=== PATIENT | male | born 1945 | race Caucasian/White ===

== ENCOUNTER 2019-03-05 15:26 | Observation (INO) | payer MEDICARE ==
[~2019-03-05] VITALS: Ht 172.7 cm; Wt 79.4 kg
[2019-03-05 16:26] LABS: BASOPHILS ABSOLUTE AUTO 0.04 K/mm3 (0.00-0.23); BASOPHILS PERCENT AUTO 0 % (0-2); EOSINOPHILS ABSOLUTE AUTO 0.21 K/mm3 (0.00-0.68); EOSINOPHILS PERCENT AUTO 2 % (0-6); Hematocrit 41.6 % (37.0-53.0); Hemoglobin 13.7 g/dL (13.5-17.5); IMMATURE GRAN ABSOLUTE AUTO 0.05 K/mm3 (0.00-0.10); IMMATURE GRAN PERCENT AUTO 0 % (0-1); LYMPHOCYTES ABSOLUTE AUTO 0.74 K/mm3 (0.84-5.20); LYMPHOCYTES PERCENT AUTO 6 % (21-46); MONOCYTES PERCENT AUTO 15 % (4-13); Mean Corpuscular HGB 30.6 pg (26.0-34.0); Mean Corpuscular HGB Conc 32.9 g/dL (31.5-36.5); Mean Corpuscular Volume 93 fL (80-100); Mean Platelet Volume 8.8 fL (9.1-12.4); NEUTROPHILS ABSOLUTE AUTO 8.96 K/mm3 (1.96-9.15); NEUTROPHILS PERCENT AUTO 77 % (41-73); Platelet Count 278 K/mm3 (150-400); RDW Coefficient Variation 13.7 % (11.7-14.2); Red Blood Cell Count 4.48 M/mm3 (4.30-5.90)
[2019-03-05 16:34] LABS: Alanine Aminotransfer (ALT/SGP 40 U/L (12-78); Albumin, Blood 3.2 g/dL (3.4-5.0); Albumin/Globulin Ratio 0.8 (0.8-1.8); Alk Phos 136 U/L (50-136); Anion Gap 6 mmol/L (6-16); Aspartate Aminotrans (AST/SGOT 28 U/L (12-37); Bilirubin, Total 0.6 mg/dL (0.1-1.0); Blood Urea Nitrogen 12 mg/dL (8-24); Bun/Creatinine Ratio 16.7 (12.0-20.0); CO2, Blood 25 mmol/L (21-32); Calcium, Blood 8.6 mg/dL (8.5-10.1); Chloride, Blood 107 mmol/L (98-108); Creatinine, Blood 0.72 mg/dL (0.60-1.20); Globulin, Blood 3.9 g/dL (2.2-4.0); Glomerular Filtration Rate >60 (60-); Glucose, Blood 119 mg/dL (70-99); Potassium, Blood 3.8 mmol/L (3.5-5.5); Sodium, Blood 138 mmol/L (136-145); Total Protein, Blood 7.1 g/dL (6.4-8.2)
[2019-03-05 16:38] LABS: PCO2 Arterial 29.5 mmHg (35-45); pH Blood Arterial 7.49 (7.35-7.45)
[2019-03-05] MEDS ORDERED: Celexa40 MG PO (17:41)
[2019-03-05] MEDS ORDERED: OMEPRAZOLE MAGN20 MG PO (17:41)
[2019-03-05] MEDS ORDERED: CELE200 PO (17:41)
[2019-03-05] MEDS ORDERED: ALPHA LIPOIC A200 MG PO ×2 (17:42)
[2019-03-05] MEDS ORDERED: AMLO10 PO (17:42)
[2019-03-05] MEDS ORDERED: Quinapril HCl40 MG PO (17:42)
[2019-03-05] MEDS ORDERED: Zanaflex4 MG PO (17:43)
[2019-03-05] MEDS ORDERED: TIOT18 INH (17:43)
[2019-03-05] MEDS ORDERED: Crestor20 MG PO (17:43)
[2019-03-05] MEDS ORDERED: FLUT1DIS5 INH (17:49)
[2019-03-05] MEDS ORDERED: OXYC5 PO (17:49)
[2019-03-05] MEDS ORDERED: ALBU90OI INH (17:49)
[2019-03-05] MEDS ORDERED: ACET325 PO (17:50)
[2019-03-05] MEDS ORDERED: MELATONIN5 M1 PO (19:06)
--- NOTE | 2019-03-06 07:23 | NUR ---
ASSUMED CARE OF PT- PT ALERT AND ORIENTED, INDEPENDENT IN THE ROOM. CALL LIGHT IN REACH, IV INFUSING NS AT THIS TIME. PT O2 SATS 99% ON 2L REDUCED TO 1L NC WILL RECHECK O2 SATS IN AN HOUR.
--- NOTE | 2019-03-06 07:42 | NUR ---
SPOKE TO RT PEPE- PT O2 TITRATED DOWN TO 1L NC SATTING 96%. WILL CTM RT AWARE.
--- NOTE | 2019-03-06 17:59 | NUR ---
SHIFT SUMMARY- PT HAS BEEN VERY MOBILE T/O THE SHIFT. O2 TITRATED TO ROOM AIR THIS MORNING. PT AMBULATING IN THE HALLS INDEPENDENTLY, BECOMING RESTLESS. SEEMS TO BE TOLLERATING THE PO PREDNISONE WELL AT THIS TIME. PT AMBULATES IN THE [place] WITH NO O2 AND WEARS HIS PERSONAL PULSE OX WHILE HE DOES. SATS ARE STAYING IN THE 90'S WITH AMBULATION. PT CURRENTLY SITTING UP IN HIS CHAIR WITH THE CALL LIGHT IN REACH, PT REMOVED GOWN AND PUT ON HIS JEANS AND T-SHIRT. PT PLANS TO WALK SECOND FLOOR AFTER DINNER, SOB MINIMAL WITH AMBULATION PER PT.
--- NOTE | 2019-03-07 04:11 | NUR ---
SHIFT SUMMARY PT HAD NO COMPLAINTS NOTED. PT IS EAGER TO GO HOME. PT WENT TO SLEEP EARLY AND CONTINUES TO SLEEP. PT IS BREATHING EASY AND IN NO DISTRESS. CALL LIGHT IN REACH.
--- NOTE | 2019-03-07 08:03 | NUR ---
ASSUMED CARE OF PT- BEDSIDE REPORT COMPLETE WITH NIGHT TOBY SEPULVEDA. PT ALERT AND ORIENTED, CALL LIGHT IN REACH, NO C/O PAIN OR S&S OF DISTRESS NOTED. PT PARTICIPATED IN BEDSIDE REPORT. POSSIBLE DISCHARGE TODAY. PT AMBULATES IN THE HALLS INDEPENDENTLY WITH NO C/O SOB.
[2019-03-07] MEDS ORDERED: BENA20 PO (10:22)
[2019-03-07] MEDS ORDERED: BENZ100A PO (10:23)
[2019-03-07] MEDS ORDERED: PRED20 PO (10:27)
[2019-03-07] MEDS ORDERED: INSULANPEN SC (10:27)
--- NOTE | 2019-03-07 11:46 | NUR ---
DISCHARGE NOTE- PT AND SPOUSE WERE GIVEN VERBAL AND WRITTEN DISCHARGE INSTRUCTIONS AND ACKNOWLEDGED UNDERSTANDING OF THEM PT HAS NO S&S OF DISTRESS NOTED AT THE TIME OF DISCHARGE. PT DENIED ANY PAIN OR SOB. PT REFUSED WC AND ESCORT FROM STAFF AND LEFT WITH HIS ON FOOT TO THE [facility] P[facility].
== END 2019-03-07 11:43 | disposition home or self-care (01) ==
LOC: ER 15:26 → MEDS 15:27 → ER 15:27 → MEDS 17:47 → ER 17:47 → MEDS 18:57 → ER 03-06 13:29 → MEDS 03-06 13:29 → ENPENDDIS 03-07 10:07 → MEDS 03-07 11:43
PROVIDERS: Emergency Medicine; ADMIT Hospitalist
DX: J96.01 Acute respiratory failure with hypoxia (principal); J98.2 Interstitial emphysema; I10 Essential (primary) hypertension; E11.9 Type 2 diabetes mellitus without complications; E78.5 Hyperlipidemia, unspecified; F32.9 Major depressive disorder, single episode, unspecified; M19.90 Unspecified osteoarthritis, unspecified site; Z87.891 Personal history of nicotine dependence; Z79.899 Other long term (current) drug therapy; Z79.52 Long term (current) use of systemic steroids
CPT/HCPCS: 36415; 36600; 71045; 80053; 82803; 82947; 83605; 85025; 93005; 93010; 94640; 94644; 94760; 96374; 99285-25; G0378; J2930; J7030; J7512

== ENCOUNTER 2019-08-12 07:34 | Day surgery (SDC) | payer MEDICARE ==
[~2019-08-12] VITALS: Ht 175.3 cm; Wt 87.5 kg
[~2019-08-12 07:34] MED LIST: ACET325 PO; ALBU90OI INH; ALPHA LIPOIC A200 MG PO; AMLO10 PO; BENA20 PO; BENZ100A PO; CELE200 PO; Celexa40 MG PO; Crestor20 MG PO; FLUT1DIS5 INH; INSULANPEN SC; MELATONIN5 M1 PO; OMEPRAZOLE MAGN20 MG PO; OXYC5 PO; PRED20 PO; Quinapril HCl40 MG PO; TIOT18 INH; Zanaflex4 MG PO
--- NOTE | 2019-08-12 08:23 | NUR ---
Ambulatory in Day Surgery Patient states colon prep results clear. History, Chart, Medications and Allergies reviewed before start of procedure. Lungs clear T/O to Auscultation. Patient confirms NPO status and agrees with scheduled surgery. Pre-Op teaching done. Pt verbalizes understanding. Patient States Post-Procedure ride home has been arranged.
--- NOTE | 2019-08-12 08:36 | NUR ---
08/12/19 0836 Ajay Muñoz PATIENT DETERMINED TO BE ASA APPROPRIATE FOR PROPOFOL SEDATION PRIOR TO START OF PROCEDURE BY . 3-LEAD EKG REVIEWED WITH PHYSICIAN PRIOR TO START OF PROCEDURE.PATIENT CONFIRMS NPO STATUS AND AGREES WITH SCHEDULED PROCEDURE.History, Chart, Medications and Allergies reviewed before start of procedure.MONITOR INTACT WITH CONTINUOUS PULSE OXIMETRY AND INTERMITTENT BP.O2 VIA N/C INTACT THROUGHOUT SEDATION/PROCEDURE.
--- NOTE | 2019-08-12 09:43 | NUR ---
Discharge instructions reviewed with patient. Patient verbalizes understanding. Copy given to patient to take home. Discharged via wheelchair to private car for ride home.
== END 2019-08-12 23:53 | disposition home or self-care (01) ==
LOC: ORSCMMR 07:34 → ORD 08:30 → ORSCMMR 08:30
PROVIDERS: Internal Medicine Gastroenterology
PROC: 0DBL8ZX Excision of Transverse Colon, Via Natural or Artificial Opening Endoscopic, Diagnostic (ICD-10-PCS; principal; 2019-08-12 08:30)
DX: Z86.010 Personal history of colon polyps (principal); J44.9 Chronic obstructive pulmonary disease, unspecified; I10 Essential (primary) hypertension; E11.9 Type 2 diabetes mellitus without complications; E78.00 Pure hypercholesterolemia, unspecified; K21.9 Gastro-esophageal reflux disease without esophagitis; F32.9 Major depressive disorder, single episode, unspecified; Z79.84 Long term (current) use of oral hypoglycemic drugs; Z79.899 Other long term (current) drug therapy; Z87.891 Personal history of nicotine dependence
CPT/HCPCS: 82947; 88302; J2704; J7120

== ENCOUNTER 2020-08-14 10:28 | Emergency (ER) | payer MEDICARE ==
[~2020-08-14] VITALS: Ht 175.3 cm; Wt 81.7 kg
[~2020-08-14 10:28] MED LIST changes: +Accupril40 MG PO; +METF500 PO; +OXYCONTIN10 MG PO
[2020-08-14 11:31] LABS: BASOPHILS ABSOLUTE AUTO 0.04 K/mm3 (0.00-0.23); BASOPHILS PERCENT AUTO 0 % (0-2); EOSINOPHILS ABSOLUTE AUTO 0.34 K/mm3 (0.00-0.68); EOSINOPHILS PERCENT AUTO 4 % (0-6); Hematocrit 41.6 % (37.0-53.0); Hemoglobin 13.8 g/dL (13.5-17.5); IMMATURE GRAN ABSOLUTE AUTO 0.03 K/mm3 (0.00-0.10); IMMATURE GRAN PERCENT AUTO 0 % (0-1); LYMPHOCYTES ABSOLUTE AUTO 1.38 K/mm3 (0.84-5.20); LYMPHOCYTES PERCENT AUTO 16 % (21-46); MONOCYTES ABSOLUTE AUTO 1.03 K/mm3 (0.16-1.47); MONOCYTES PERCENT AUTO 12 % (4-13); Mean Corpuscular HGB 28.9 pg (26.0-34.0); Mean Corpuscular HGB Conc 33.2 g/dL (31.5-36.5); Mean Corpuscular Volume 87 fL (80-100); Mean Platelet Volume 8.8 fL (9.1-12.4); NEUTROPHILS ABSOLUTE AUTO 6.09 K/mm3 (1.96-9.15); NEUTROPHILS PERCENT AUTO 68 % (41-73); Platelet Count 297 K/mm3 (150-400); RDW Coefficient Variation 15.3 % (11.7-14.2); RDW Standard Deviation 49.2 fL (35.1-46.3); Red Blood Cell Count 4.78 M/mm3 (4.30-5.90); White Blood Cell Count 8.91 K/mm3 (4.00-11.30)
[2020-08-14 12:07] LABS: Alanine Aminotransfer (ALT/SGP 24 U/L (12-78); Albumin, Blood 3.8 g/dL (3.4-5.0); Albumin/Globulin Ratio 1.1 (0.8-1.8); Alk Phos 80 U/L (50-136); Anion Gap 5 mmol/L (6-16); Aspartate Aminotrans (AST/SGOT 16 U/L (12-37); Bilirubin, Total 0.3 mg/dL (0.1-1.0); Blood Urea Nitrogen 13 mg/dL (8-24); Bun/Creatinine Ratio 20.5 (12.0-20.0); CO2, Blood 27 mmol/L (21-32); Calcium, Blood 9.1 mg/dL (8.5-10.1); Chloride, Blood 108 mmol/L (98-108); Creatinine, Blood 0.64 mg/dL (0.60-1.20); Globulin, Blood 3.5 g/dL (2.2-4.0); Glomerular Filtration Rate >60 (60-); Glucose, Blood 101 mg/dL (70-99); Potassium, Blood 3.9 mmol/L (3.5-5.5); Sodium, Blood 140 mmol/L (136-145); Total Protein, Blood 7.3 g/dL (6.4-8.2); Troponin I <0.015 ng/mL (0.000-0.040)
== END 2020-08-14 12:51 | disposition home or self-care (01) ==
LOC: ER 10:28
PROVIDERS: Physician Assistant
DX: M25.512 Pain in left shoulder (principal); J44.9 Chronic obstructive pulmonary disease, unspecified; E11.9 Type 2 diabetes mellitus without complications; E78.00 Pure hypercholesterolemia, unspecified; F32.9 Major depressive disorder, single episode, unspecified; Z87.891 Personal history of nicotine dependence; Z79.899 Other long term (current) drug therapy; Z79.84 Long term (current) use of oral hypoglycemic drugs
CPT/HCPCS: 36415; 71046; 80053; 83880; 84484; 85025; 93005; 93010; 99284-25

== ENCOUNTER 2021-08-16 22:17 | Inpatient (IN) | payer MEDICARE ==
[~2021-08-16] VITALS: Ht 177.8 cm; Wt 81.7 kg
[2021-08-16 22:42] LABS: BASOPHILS ABSOLUTE AUTO 0.04 K/mm3 (0.00-0.23); BASOPHILS PERCENT AUTO 0 % (0-2); EOSINOPHILS ABSOLUTE AUTO 0.03 K/mm3 (0.00-0.68); EOSINOPHILS PERCENT AUTO 0 % (0-6); Hemoglobin 15.1 g/dL (13.5-17.5); IMMATURE GRAN ABSOLUTE AUTO 0.08 K/mm3 (0.00-0.10); IMMATURE GRAN PERCENT AUTO 1 % (0-1); LYMPHOCYTES ABSOLUTE AUTO 0.63 K/mm3 (0.84-5.20); LYMPHOCYTES PERCENT AUTO 4 % (21-46); MONOCYTES ABSOLUTE AUTO 1.27 K/mm3 (0.16-1.47); MONOCYTES PERCENT AUTO 7 % (4-13); Mean Corpuscular HGB 29.8 pg (26.0-34.0); Mean Corpuscular HGB Conc 33.6 g/dL (31.5-36.5); Mean Corpuscular Volume 89 fL (80-100); Mean Platelet Volume 8.9 fL (9.1-12.4); NEUTROPHILS ABSOLUTE AUTO 15.17 K/mm3 (1.96-9.15); NEUTROPHILS PERCENT AUTO 88 % (41-73); Platelet Count 287 K/mm3 (150-400); RDW Coefficient Variation 14.1 % (11.7-14.2); RDW Standard Deviation 46.2 fL (35.1-46.3); Red Blood Cell Count 5.06 M/mm3 (4.30-5.90); White Blood Cell Count 17.22 K/mm3 (4.00-11.30)
[2021-08-16 22:53] LABS: Alanine Aminotransfer (ALT/SGP 32 U/L (12-78); Albumin/Globulin Ratio 1.1 (0.8-1.8); Alk Phos 74 U/L (50-136); Anion Gap 6 mmol/L (6-16); Aspartate Aminotrans (AST/SGOT 36 U/L (12-37); Bilirubin, Total 0.4 mg/dL (0.1-1.0); Blood Urea Nitrogen 18 mg/dL (8-24); Bun/Creatinine Ratio 21.7 (12.0-20.0); CO2, Blood 27 mmol/L (21-32); Calcium, Blood 9.2 mg/dL (8.5-10.1); Chloride, Blood 107 mmol/L (98-108); Creatinine, Blood 0.83 mg/dL (0.60-1.20); Globulin, Blood 3.7 g/dL (2.2-4.0); Glomerular Filtration Rate >60 (60-); Glucose, Blood 145 mg/dL (70-99); Potassium, Blood 3.9 mmol/L (3.5-5.5); Sodium, Blood 140 mmol/L (136-145); Total Protein, Blood 7.7 g/dL (6.4-8.2)
[2021-08-17 00:39] LABS: SARS-Cov-2 (COVID-19) PCR, MMC NEGATIVE (NEGATIVE)
--- NOTE | 2021-08-17 06:39 | NUR ---
PT ADMITTED TO ROOM 207. PT IS A/OX3 AND IS ABLE TO MAKE HIS NEEDS NKOWN. PT ORIENTATED TO ROOM, CALL LIGHT, TV, DIET ORDERS AND PRN PAIN MEDICATIONS. PT SUSTAINED RT RIB FX'S SUSTAINED IN FALL OFF DOCK TO GROUND, APPROX 8-10 FEET. PT REPORTS HE HAD A FALL AT HOME 1 WEEK AGO, SAYS HE WAS ON TOILET WHEN HE FELL ASLEEP AND FELL TO THE FLOOR. SUSTAINED ABRASION TO RT FOREHEAD IN THAT FALL. OXYGEN AT 2L PER NC. BSC BUT DIMINISHED, DOES NOT TAKE IN DEEP BREATHS D/T PAIN FROM RIB FX'S. USES URINAL. DENIED ANY GI UPSET, INCLUDING ANY N/V. BT'S POS. PIV TO LFA, 20 GAUGE, PATENT AND FLUSHES WELL.
--- NOTE | 2021-08-17 14:42 | NUR ---
SHIFT SUMMARY: RIB FRACTURES PATIENT IS ALERT AND ORIENTED X4. VS ARE WNL AND IS ON RA. PAIN IS TOLERABLE WITH IV DILAUDID/TORADOL WELL 2 PERCOCETS PO. PATIENT WAS EDUCATED TO STILL TRY AND DEEP BREATH SINCE HE COULD GET PNEUMONIA AND HE VERBALIZED UNDERSTANDING. INCENTIVE SPIROMETER IS AT BED SIDE TO ENCOURAGE USE. PATIENT ALSO HAS A PILLOW TO HOLD ONTO TO EMBRACE WHILE COUGHING. HE IS TOLERATING PO INTAKE AND IS VOIDING. PATIENT SCREAMS OUT IN PAIN WHEN HE TRIED TO WORK WITH PHYSICAL THERAPY WELL WHEN TRYING TO BE REPOSITIONED. HE IS CURRENTLY LAYING IN BED. CALL LIGHT WITHIN REACH. THE PLAN IS TO CONTINUE DEEP BREATHING AND TO HAVE PAIN MANAGED.
[2021-08-18 04:21] LABS: BASOPHILS ABSOLUTE AUTO 0.05 K/mm3 (0.00-0.23); BASOPHILS PERCENT AUTO 1 % (0-2); EOSINOPHILS ABSOLUTE AUTO 0.39 K/mm3 (0.00-0.68); EOSINOPHILS PERCENT AUTO 4 % (0-6); Hematocrit 41.9 % (37.0-53.0); IMMATURE GRAN ABSOLUTE AUTO 0.03 K/mm3 (0.00-0.10); IMMATURE GRAN PERCENT AUTO 0 % (0-1); LYMPHOCYTES ABSOLUTE AUTO 1.06 K/mm3 (0.84-5.20); LYMPHOCYTES PERCENT AUTO 11 % (21-46); MONOCYTES ABSOLUTE AUTO 1.15 K/mm3 (0.16-1.47); MONOCYTES PERCENT AUTO 12 % (4-13); Mean Corpuscular HGB 29.7 pg (26.0-34.0); Mean Corpuscular HGB Conc 33.4 g/dL (31.5-36.5); Mean Corpuscular Volume 89 fL (80-100); Mean Platelet Volume 8.7 fL (9.1-12.4); NEUTROPHILS ABSOLUTE AUTO 7.16 K/mm3 (1.96-9.15); NEUTROPHILS PERCENT AUTO 73 % (41-73); Platelet Count 207 K/mm3 (150-400); RDW Standard Deviation 45.5 fL (35.1-46.3); Red Blood Cell Count 4.72 M/mm3 (4.30-5.90); White Blood Cell Count 9.84 K/mm3 (4.00-11.30)
--- NOTE | 2021-08-18 04:24 | NUR ---
SHIFT SUMMARY: PT REMAINS VERY PAINFUL THIS SHIFT. BEING MEDICATED WITH DILAUDID Q2, TORADOL Q6 AND PERCOCET Q4. RATING PAIN FROM 6-8/10 ON PAIN SCALE. PT UNABLE TO MOVE OR REPOSITION IN BED R/T PAIN. VOIDING IN URINAL INDEPENDENTLY. PT TOLERATING PO AND DENIES N/V. VS WNL THIS SHIFT.
[2021-08-18 04:48] LABS: Anion Gap 6 mmol/L (6-16); Blood Urea Nitrogen 22 mg/dL (8-24); Bun/Creatinine Ratio 32.1 (12.0-20.0); CO2, Blood 27 mmol/L (21-32); Calcium, Blood 8.7 mg/dL (8.5-10.1); Chloride, Blood 105 mmol/L (98-108); Creatinine, Blood 0.69 mg/dL (0.60-1.20); Glomerular Filtration Rate >60 (60-); Glucose, Blood 101 mg/dL (70-99); Potassium, Blood 4.1 mmol/L (3.5-5.5); Sodium, Blood 138 mmol/L (136-145)
--- NOTE | 2021-08-18 08:29 | NUR ---
DENIES ANY SOB, C/O PAIN ON "RIBS" PT STATES HASN'T BEEN ABLE TO MOVE IN BED OR GET UP, USES IS WELL, ANXIOUS ABOUT PAIN CONTROL, DISCUSSED PAIN MEDS, PHYSICAL THERAPY CURRRENTLY WORKING WITH PT.
--- NOTE | 2021-08-18 10:17 | NUR ---
OFFERED TO ASSIST PT TO TURN AND REPOSITION IN BED, BUT PT REFUSED, DISCUSSED RISKS OF SKIN BREAKDOWN AND PRESSURE SORES BUT PT CONT. TO REFUSE TO MOVE.
--- NOTE | 2021-08-18 17:48 | NUR ---
SUMMARY PT HAS BEEN PAINFUL T/O THE DAY UNTIL THIS EVENING, UNABLE TO GET OOB OR MOVE IN BED W/ PT, PT HAS REFUSED TO BE TURNED OR REPOSITIONED EVEN AFTER PAIN MEDS GIVEN, PT REPORTS HAVING BACK SPASMS THIS AFTERNOON W/ SLIGHT MOVEMENT, FLEXERIL STARTED, PT CURRENTLY REPORTS HAVING "0" PAIN AFTER DILAUDID GIVEN AND FLEXERIL, REFUSED DINNER AT THIS TIME, STATES HE JUST WANTS TO SLEEP AND REST, DENIES ANY SOB, SOME AUDIBLE EXPIRATORY WHEEZE NOTED THIS EVENING, PT USING IS BUT UNABLE TO TAKE A DEEP BREATH DUE TO INCREASED PAIN W/ INSPIRATION, NO OTHER CHANGES THIS SHIFT.
--- NOTE | 2021-08-19 03:22 | NUR ---
PT APPEARS TO BE SLEEPING
--- NOTE | 2021-08-19 04:55 | NUR ---
PT APPEARS TO BE ASLEEP IN BED.
--- NOTE | 2021-08-19 05:38 | NUR ---
SHIFT SUMMARY PT ADMITTED FOR BROKEN R RIBS 4-10 DUE TO FALL ON DOCK AT A POND AT HIS HOUSE. PT STATES VERY PAINFUL. MEDICATED PER EMAR. MONITORED PT THROUGHOUT SHIFT AND PT HAS APPEARED TO REST FREQUENTLY AND APPEARS DROWSY WHILE TALKING. PT IS ON 3 L NC AND PT'S O2 SATS HAVE MAINTAINED STABLE THROUGHOUT SHIFT. PT HAS HAD SOME CONFUSION DURING SHIFT, FORGETTING WHY HIS RIBS HURT. PT IS A&O X4 WHEN ASKED QUESTIONS BUT FORGETFUL AT TIMES. REPOSITIONED PT THROUGHOUT SHIFT TOLERATED AND PRN. PT IS TOLERATING FLUIDS AND DENIES N/V. PT HAS MENTIONED WANTING A "WHISKEY" MULTIPLE TIMES THROUGHOUT SHIFT. STATES HE DRINKS ABOUT "3 OZ" QDAY. MONITORED FOR S&S OF ALCOHOL WITHDRAWAL. NONE PRESENT AT THIS TIME. PT APPEARS TO CURRENTLY BE SLEEPING. CALL LIGHT IS WITHIN REACH.
--- NOTE | 2021-08-19 11:06 | NUR ---
OOB TO CHAIR W/ MODERATE ASSISTE, TOLERATED FAIRLY WELL, DR. TEJADA HERE TO SEE PT, PT TO CONTINUE TO PHYS. THERAPY AND MOBILIZE.
--- NOTE | 2021-08-19 18:04 | NUR ---
SUMMARY OOB TO CHAIR X3 TODAY, TOLERATED FAIRLY WELL W/ MIN-MOD ASSIST, ALSO USED BSC X2 TODAY, NO BM, REFUSED BOWEL CARE AT THIS TIME, DENIES ANY SOB, PAIN MANAGEABLE WITH PAIN MEDS, SLEPT MOST OF AFTERNOON, NO ACUTE CHANGES THIS SHIFT.
--- NOTE | 2021-08-20 05:50 | NUR ---
SHIFT SUMMARY PT ADMITTED FOR R SIDED MULTIPLE RIB FX'S. PT IS A&O X4 W/OCCASIONAL CONFUSION/FORGETFULNESS. PT HAS REQUESTED TO BE REPOSITIONED WHICH HAS HELPED WITH HIS PAIN MANAGEMENT. PAIN MANAGEMENT APPEARS TO BE IMPROVING PT IS NOT REQUESTING FOR NON-PHARMALOGICAL FORMS OF PAIN MANAGEMENT. BED ALARM IS ON DUE TO PT STATING WHEN HE WOKE UP HE ALMOST GOT UP OUT OF BED. THIS RN ENCOURAGED PT TO CALL IF HE WOULD LIKE TO GET UP AND WE WOULD BE HAPPY TO HELP. PT IS TOLERATING PO FLUIDS W/O REPORT OF N/V. USING URINAL PRN. CALLS APPROPRIATELY. PER PT HE GETS LONELY OCCASIONALLY IN HIS ROOM. THIS RN HAD A GOOD CONVERSATION WITH HIM AND PT STATED HE WAS THANKFUL FOR THE TIME AND COMPANY, STATING IT HELPED "DISTRACT" HIM. PT IS CURRENTLY RESTING IN BED W/CALL LIGHT WITHIN REACH. WILL GIVE REPORT TO DAY SHIFT RN.
--- NOTE | 2021-08-20 17:16 | NUR ---
SHIFT SUMMARY A&OX3, VSS/2LNC/CBGS CNI. R RIB FX'S, PAIN MANAGED WITH 15 PERCOCET Q4, FLEXERIL TID, TORADOL Q6; DEEP BREATHING & I.S. EDU/ENC/DEMONSTRATED. CARA PO, VOIDING/URINAL, STAND PIVOT TO CHAIR FOR MEALS; AMBULATED WITH PHYSICAL THERAPY. WILL REPORT TO ONCCALDERON BOONE RN.
--- NOTE | 2021-08-21 06:01 | NUR ---
LYING IN HIGH FOWLERS WITH EYES CLOSED, HAS DOZED OFF AND ON THIS SHIFT. CONTINUE TO ENCOURAGED AND REITERATE NEED TO USED IS AND FLUTTER VALVE, VOICES UNDERSTANDING. REMAINS ON 2L AT 2L.NC WHILE MAINTAINING SATS AT > 94%. ENCOURAGED TO GET OOB WITH STANDBY ASSISTANCE. ATTEMPTED TO HAVE BM EARLIER THIS SHIFT BUT WAS UNSUCCESSFUL. WILL CONTINUE TO ENCOURAGE MOVEMENT. PAIN MANAGED WITH PRN PAIN MEDS. DENEIS FURTHER NEEDS OR WANTS AT THIS TIME. SAFETY MEASURES IN PLACE. WILL CONTINUE TO MONITOR AND ADDRESS NEEDS THEY ARISE. WILL GIVE HAND OFF TO ONCOMING SHIFT USING SBAR DURING BEDSIDE REPORT.
--- NOTE | 2021-08-21 17:29 | NUR ---
SHIFT SUMMARY PT BEING TREATED FOR PAIN PER EMAR TODAY, TOLERATING WELL. AMBULATING WELL, UP TO BATHROOM, VOIDING. TOLERATING ADA DIET. PLAN FOR POSSIBLE DC TOMORROW. VITALS STABLE, PT ON RA AND SATING AT 95-98%. WILL REPORT TO ONCOMING RN.
--- NOTE | 2021-08-21 22:13 | NUR ---
PATIENT IS VERY HOSTILE AND YELLED AT THE NURSE. THE NURSE ADMINISTERED PATIENT'S MEDICATION AND TOLD THE PATIENT USE THE CALL LIGHT IF ANYTHING ELSE IS NEEDED. WILL CONTINUE TO MONITOR.
--- NOTE | 2021-08-22 13:06 | NUR ---
SPOKE WITH PT'S NICHOL AT ABOUT 0900 AND GIVE STATUS UPDATE
--- NOTE | 2021-08-22 18:28 | NUR ---
SUMMARY: NO ACUTE CHANGE TODAY, PT PLEASENT, A/O, VSS. PT SLOW WITH ANY MOVEMENT, BUT ABLE TO MOVE INDEPENDENTLY. RIB PAIN APPEARS TO BE MANAGED WITH 2 PERCOCET. PLAN IS FOR HOME WITH HH TOMORROW, PT REPORTS THAT HE HAS FWW AT HOME, PT GIVEN AN UPDATE TONIGHT. NO SAFETY CONCERNS, WILL REPORT TO NOC RN
--- NOTE | 2021-08-23 04:54 | NUR ---
SHIFT SUMMARY PT ADMITTED FOR R RIB FX OF RIBS 4-10. PT A&O X4. PT WAS UP IN CHAIR AT BEGINNING OF SHIFT. PT WAS ABLE TO MOVE BACK TO BED ON OWN WITH STAND BY ASSIST. PT TOLERATING FLUIDS W/O COMPLAINT OF N/V. PT IS USING URINAL AND CALLING APPROPRIATELY. PAIN IS WELLL CONTROLLED PER EMAR. PLAN IS FOR PT TO DISCHARGE TODAY. PT CURRENTLY RESTING IN BED WITH CALL LIGHT WITHIN REACH.
[2021-08-23] MEDS ORDERED: Percocet 10-321 EACH PO (10:12)
--- NOTE | 2021-08-23 12:23 | NUR ---
DISCHARGE SUMMARY PT SUFFERED RIB FX'S TO R RIBS 4-10 AFTER FALLING OFF A DOCK. PT WORKED WITH PHYSICAL THERAPY TODAY AND WAS ABLE TO AMBULATE IN THE [place]. REPORTED PAIN IN HIS R RIBS X2 THIS SHIFT AND MEDICATED PER EMR. ABD BINDER APPLIED FOR COMFORT. WENT OVER DC INSTRUCTIONS WITH HIS PATIENT AND HIS . PT VERBALIZED UNDERSTANDING.
== END 2021-08-23 11:53 | disposition home or self-care (01) | DRG 199 ==
LOC: ER 22:17 → SURS 08-17 00:52
PROVIDERS: Nurse Practitioner Acute Care; Student in an Organized Health Care Education/Training Program; ADMIT Surgery
DX: S27.0XXA Traumatic pneumothorax, initial encounter (principal); J96.01 Acute respiratory failure with hypoxia; S22.41XA Multiple fractures of ribs, right side, initial encounter for closed fracture; W13.0XXA Fall from, out of or through balcony, initial encounter; J44.9 Chronic obstructive pulmonary disease, unspecified; E11.9 Type 2 diabetes mellitus without complications; Z96.611 Presence of right artificial shoulder joint; Z20.822 Contact with and (suspected) exposure to COVID-19; E78.5 Hyperlipidemia, unspecified; K21.9 Gastro-esophageal reflux disease without esophagitis; Z96.612 Presence of left artificial shoulder joint; D72.829 Elevated white blood cell count, unspecified; E78.00 Pure hypercholesterolemia, unspecified; F32.9 Major depressive disorder, single episode, unspecified; Z90.49 Acquired absence of other specified parts of digestive tract; Z98.890 Other specified postprocedural states; Z87.891 Personal history of nicotine dependence
CPT/HCPCS: 36415; 71045; 71260; 74177; 80048; 80053; 82627; 82670; 82947; 83001; 83002; 84146; 84270; 84403; 85025; 93005; 93010; 94640; 94664; 94760; 96374-59; 96375; 96376; 97110; 97116; 97162; 97530; 99285-25; A9270; G0103; J1170; J1885; Q9967; U0004

== ENCOUNTER → 2022-09-13 | Outpatient (CLI) | payer MEDICARE ==
[~2022-09-13] MED LIST changes: +Percocet 10-321 EACH PO
[2022-09-13 13:37] LABS: BASOPHILS ABSOLUTE AUTO 0.03 K/mm3 (0.00-0.23); BASOPHILS PERCENT AUTO 0 % (0-2); EOSINOPHILS ABSOLUTE AUTO 0.27 K/mm3 (0.00-0.68); EOSINOPHILS PERCENT AUTO 2 % (0-6); Hematocrit 45.2 % (37.0-53.0); Hemoglobin 15.6 g/dL (13.5-17.5); IMMATURE GRAN ABSOLUTE AUTO 0.06 K/mm3 (0.00-0.10); IMMATURE GRAN PERCENT AUTO 1 % (0-1); LYMPHOCYTES PERCENT AUTO 13 % (21-46); MONOCYTES ABSOLUTE AUTO 1.49 K/mm3 (0.16-1.47); MONOCYTES PERCENT AUTO 11 % (4-13); Mean Corpuscular HGB 30.2 pg (26.0-34.0); Mean Corpuscular HGB Conc 34.5 g/dL (31.5-36.5); Mean Corpuscular Volume 87 fL (80-100); Mean Platelet Volume 8.3 fL (9.1-12.4); NEUTROPHILS ABSOLUTE AUTO 9.72 K/mm3 (1.96-9.15); NEUTROPHILS PERCENT AUTO 73 % (41-73); Platelet Count 364 K/mm3 (150-400); RDW Coefficient Variation 14.2 % (11.7-14.2); RDW Standard Deviation 45.3 fL (35.1-46.3); Red Blood Cell Count 5.17 M/mm3 (4.30-5.90); White Blood Cell Count 13.27 K/mm3 (4.00-11.30)
[2022-09-13 13:49] LABS: Albumin, Blood 3.7 g/dL (3.4-5.0); Albumin/Globulin Ratio 1.2 (0.8-1.8); Bilirubin, Total 0.3 mg/dL (0.1-1.0); Bun/Creatinine Ratio 20.7 (12.0-20.0); Calcium, Blood 9.1 mg/dL (8.5-10.1); Creatinine, Blood 0.92 mg/dL (0.60-1.20); Globulin, Blood 3.2 g/dL (2.2-4.0); Potassium, Blood 3.5 mmol/L (3.5-5.5); Total Protein, Blood 6.9 g/dL (6.4-8.2)
== END | disposition home or self-care (01) ==
LOC: LAB SHORT 13:32 → LAB 13:32
PROVIDERS: Chiropractor
DX: R06.00 Dyspnea, unspecified (principal)
CPT/HCPCS: 80053; 84484; 85025; 85379

== ENCOUNTER 2023-02-15 19:27 | Emergency (ER) | payer MEDICARE ==
[~2023-02-15] VITALS: Ht 172.7 cm; Wt 79.4 kg
[~2023-02-15 19:27] MED LIST changes: -Crestor20 MG PO; +Crestor40 MG PO; -FLUT1DIS5 INH; +FLUT1DIS8 INH; +OMEP20ER PO; -OMEPRAZOLE MAGN20 MG PO; +ONDA4ODT MM; +OXYC10TA19 PO; -OXYCONTIN10 MG PO; +SPIRIVA RESPIMAT4 G3 INH; -TIOT18 INH
[2023-02-15 19:57] LABS: BASOPHILS ABSOLUTE AUTO 0.04 K/mm3 (0.00-0.23); BASOPHILS PERCENT AUTO 0 % (0-2); EOSINOPHILS ABSOLUTE AUTO 0.11 K/mm3 (0.00-0.68); EOSINOPHILS PERCENT AUTO 1 % (0-6); Hematocrit 43.1 % (37.0-53.0); Hemoglobin 14.3 g/dL (13.5-17.5); IMMATURE GRAN ABSOLUTE AUTO 0.03 K/mm3 (0.00-0.10); IMMATURE GRAN PERCENT AUTO 0 % (0-1); LYMPHOCYTES ABSOLUTE AUTO 1.05 K/mm3 (0.84-5.20); LYMPHOCYTES PERCENT AUTO 10 % (21-46); MONOCYTES PERCENT AUTO 12 % (4-13); Mean Corpuscular HGB 28.5 pg (26.0-34.0); Mean Corpuscular HGB Conc 33.2 g/dL (31.5-36.5); Mean Corpuscular Volume 86 fL (80-100); Mean Platelet Volume 8.6 fL (9.1-12.4); NEUTROPHILS ABSOLUTE AUTO 7.97 K/mm3 (1.96-9.15); NEUTROPHILS PERCENT AUTO 76 % (41-73); Platelet Count 253 K/mm3 (150-400); RDW Coefficient Variation 14.9 % (11.7-14.2); RDW Standard Deviation 46.9 fL (35.1-46.3); Red Blood Cell Count 5.02 M/mm3 (4.30-5.90)
[2023-02-15 20:09] LABS: Albumin, Blood 3.7 g/dL (3.4-5.0); Bilirubin, Total 0.3 mg/dL (0.1-1.0); Bun/Creatinine Ratio 17.2 (12.0-20.0); Calcium, Blood 9.4 mg/dL (8.5-10.1); Creatinine, Blood 0.7 mg/dL (0.60-1.20); Globulin, Blood 3.7 g/dL (2.2-4.0); Potassium, Blood 3.5 mmol/L (3.5-5.5); Total Protein, Blood 7.4 g/dL (6.4-8.2)
[2023-02-15] MEDS ORDERED: Amoxicillin875 MG PO (21:09)
[2023-02-15] MEDS ORDERED: Prednisone20 MG PO (21:09)
== END 2023-02-15 21:29 | disposition home or self-care (01) ==
LOC: ER 19:27
PROVIDERS: Emergency Medicine
DX: J44.1 Chronic obstructive pulmonary disease with (acute) exacerbation (principal); I10 Essential (primary) hypertension; E11.9 Type 2 diabetes mellitus without complications; E78.5 Hyperlipidemia, unspecified; Z87.891 Personal history of nicotine dependence; Z79.899 Other long term (current) drug therapy; Z79.84 Long term (current) use of oral hypoglycemic drugs
CPT/HCPCS: 71045; 80053; 84484; 85025; 93005; 93010; 99284-25; A9270; J7512

== ENCOUNTER 2023-02-17 04:21 | Inpatient (IN) | payer MEDICARE ==
[~2023-02-17] VITALS: Ht 175.3 cm; Wt 77.8 kg
[~2023-02-17 04:21] MED LIST changes: +Amoxicillin875 MG PO; +Prednisone20 MG PO
[2023-02-17 05:01] LABS: BASOPHILS ABSOLUTE AUTO 0.01 K/mm3 (0.00-0.23); BASOPHILS PERCENT AUTO 0 % (0-2); EOSINOPHILS ABSOLUTE AUTO 0.01 K/mm3 (0.00-0.68); EOSINOPHILS PERCENT AUTO 0 % (0-6); Hematocrit 42.8 % (37.0-53.0); Hemoglobin 14.2 g/dL (13.5-17.5); IMMATURE GRAN ABSOLUTE AUTO 0.04 K/mm3 (0.00-0.10); IMMATURE GRAN PERCENT AUTO 0 % (0-1); LYMPHOCYTES ABSOLUTE AUTO 0.38 K/mm3 (0.84-5.20); LYMPHOCYTES PERCENT AUTO 3 % (21-46); MONOCYTES ABSOLUTE AUTO 0.94 K/mm3 (0.16-1.47); MONOCYTES PERCENT AUTO 7 % (4-13); Mean Corpuscular HGB 28.7 pg (26.0-34.0); Mean Corpuscular HGB Conc 33.2 g/dL (31.5-36.5); Mean Corpuscular Volume 87 fL (80-100); Mean Platelet Volume 8.7 fL (9.1-12.4); NEUTROPHILS ABSOLUTE AUTO 11.98 K/mm3 (1.96-9.15); NEUTROPHILS PERCENT AUTO 90 % (41-73); Platelet Count 255 K/mm3 (150-400); RDW Coefficient Variation 14.7 % (11.7-14.2); RDW Standard Deviation 47.4 fL (35.1-46.3); Red Blood Cell Count 4.94 M/mm3 (4.30-5.90); White Blood Cell Count 13.36 K/mm3 (4.00-11.30)
[2023-02-17 05:14] LABS: Albumin, Blood 3.7 g/dL (3.4-5.0); Bilirubin, Total 0.2 mg/dL (0.1-1.0); Bun/Creatinine Ratio 31.7 (12.0-20.0); Calcium, Blood 8.4 mg/dL (8.5-10.1); Creatinine, Blood 0.57 mg/dL (0.60-1.20); Globulin, Blood 3.7 g/dL (2.2-4.0); Potassium, Blood 3.5 mmol/L (3.5-5.5); Total Protein, Blood 7.4 g/dL (6.4-8.2)
[2023-02-17 05:41] LABS: Influenza A, PCR NEGATIVE (NEGATIVE); Influenza B, PCR NEGATIVE (NEGATIVE); Resp Syncytial Virus, PCR NEGATIVE (NEGATIVE); SARS-Cov-2 (COVID-19) PCR, MMC NEGATIVE (NEGATIVE)
[2023-02-17 05:59] LABS: PCO2 Venous 42.7 mmHg (38-42); pH Blood Venous 7.36 (7.34-7.37)
[2023-02-17 06:00] LABS: Base Excess Venous -1.5 mmol/L; Bicarbonate Venous 23.1 mmol/L (24.0-30.0)
[2023-02-17] MEDS ORDERED: Enalapril Malea20 MG PO (16:58)
[2023-02-17] MEDS ORDERED: SOLI5 PO (16:59)
[2023-02-17] MEDS ORDERED: GABA300 PO (17:00)
[2023-02-17] MEDS ORDERED: TAMS.4ER PO (17:00)
[2023-02-17] MEDS ORDERED: TIZA4 PO (17:03)
[2023-02-17] MEDS ORDERED: VENL150ER PO (17:05)
[2023-02-17] MEDS ORDERED: METF500C PO (17:06)
--- NOTE | 2023-02-17 19:32 | NUR ---
SHIFT SUMMARY PATIENT NEW ADMIT TO UNIT FROM PCU. ARRIVED TO ROOM IN AM ALERT AND ORIENTED. BIPAP AT 25%, RR 38, SPO2 95%. RESTED AND SLEPT IN BED ALL DAY UNTIL 1650. BEDREST, USES URINAL. TRIALED BIPAP OFF, 4L VIA NC PLACED, MAINTAINED SATS ABOVE 95%. WHEN ATTEMPTED TO SIT UP TO EDGE OF BED BECAME DYSPNEIC IN ABOUT 15 MINUTES AND DESATTED TO 89%. LAID BACK INTO BED AND PLACED BIPAP AND FAN. RR WAS 40. PATIENT WAS ANXIOUS. ABLE TO CALM AND RR CAME DOWN TO 20 AFTER ABOUT 20 MINUTES. ROUTINE IV ABX AND STEROID. OXYCODONE FOR CHRONIC PAIN PER EMAR. REPORT GIVEN TO FLOOR SCRAPER RN.
--- NOTE | 2023-02-18 04:41 | NUR ---
SHIFT SUMMARY A/Ox4 AND COOPERATIVE WITH CARE PROVIDED BY MEMBERS OF STAFF. ABLE TO ANSWER QUESTION APPROPRIATLEY AND ABLE TO MAKE NEEDS KNOWN. NO ACUTE EVENTS OVERNIGHT FOR PT WAS ABLE TO GET A DECENT AMOUNT OF SLEEP. MAINTAIN SPO2 >92% ON BIPAP WITH 12/7 W/FIO2 OF 25%. RR REMAIN IN 25-35 T/O THE NIGHT, DESATS VERY QUICKLY WHEN BIPAP IS OFF. SOB NOTED WITH EXERTION WELL. CARDIAC RICE, SR 70-90'S WITH NO REPORTS OF CP OR PRESSURE T/O THE NIGHT. BP REMAINS STABLE. ABLE TO USE URINAL IN BED W/O ASSISTANCE. CHRONIC BACK PAIN HAS BEEN MANAGED ORDERED VIA EMAR. NO NEW ORDERS AT THIS TIME. WILL REPORT TO DAYSHIFT TOBY
[2023-02-18 04:48] LABS: BASOPHILS ABSOLUTE AUTO 0.01 K/mm3 (0.00-0.23); BASOPHILS PERCENT AUTO 0 % (0-2); EOSINOPHILS PERCENT AUTO 0 % (0-6); Hematocrit 42.4 % (37.0-53.0); Hemoglobin 14.2 g/dL (13.5-17.5); IMMATURE GRAN ABSOLUTE AUTO 0.08 K/mm3 (0.00-0.10); IMMATURE GRAN PERCENT AUTO 1 % (0-1); LYMPHOCYTES PERCENT AUTO 3 % (21-46); MONOCYTES ABSOLUTE AUTO 0.65 K/mm3 (0.16-1.47); MONOCYTES PERCENT AUTO 6 % (4-13); Mean Corpuscular HGB Conc 33.5 g/dL (31.5-36.5); Mean Corpuscular Volume 87 fL (80-100); Mean Platelet Volume 8.8 fL (9.1-12.4); NEUTROPHILS ABSOLUTE AUTO 10.47 K/mm3 (1.96-9.15); NEUTROPHILS PERCENT AUTO 90 % (41-73); Platelet Count 289 K/mm3 (150-400); RDW Coefficient Variation 15.1 % (11.7-14.2); RDW Standard Deviation 48.1 fL (35.1-46.3); White Blood Cell Count 11.61 K/mm3 (4.00-11.30)
[2023-02-18 05:07] LABS: Bun/Creatinine Ratio 27.8 (12.0-20.0); Calcium, Blood 8.9 mg/dL (8.5-10.1); Creatinine, Blood 0.61 mg/dL (0.60-1.20); Potassium, Blood 3.7 mmol/L (3.5-5.5)
--- NOTE | 2023-02-18 10:07 | NUR ---
Pt has been tolerant of being off the bipap, on oxygen n.c. delivery since 6 am. He was able to void using the urinal in bed, eat "a couple bites" of breakfast and drink some V8 juice and take oral medications without significant drops in his spo2 level. He asked for and received oxycodone for chronic back pain. Cheerfully conversant with staff. His is at thebedside now, talking with him. He has no voiced needs now.
--- NOTE | 2023-02-18 11:43 | NUR ---
Upon receiving a referral for spiritual care, I visited the patient. Pt's spouse, Krystal is bedside. Patient starts out talking extensively and quickly and immediately starts to desat on his oxygen levels. Krystal reminds him often to slow down and take slow deep breaths he struggles to follow these directions. Patient is very social and enjoys the engagement in conversation. Patient admits to struggling with anxiety assosiated with SOB. We explore sources of finding peace and focus. I learnd about their 40 plus years together and about their ever expanding family. 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 Krystal expresses the family concerns. Krystal asks me to pray for the patient and the patient is appreciative that I would pray for his spouses sake. I provide prayer, therapeutic listening and a calming presence. Patient responded well and showed signs of reduced stress.
--- NOTE | 2023-02-18 16:14 | NUR ---
Medicated for pain of lower/mid back (chronic, he states) as well as headache with oxycodone and acetaminophen.
--- NOTE | 2023-02-18 16:29 | NUR ---
Pt is still dyspneic with activity of conversation, eating, repositioning, etc. Spo2 maintaining well above 90%, on 2 l/min, but effort is noticeable with ativity. His lung wounds remain wheezy.
--- NOTE | 2023-02-18 18:28 | NUR ---
This evening pt is noted a little less dyspneic with conversation and with eating. He remains cheerful, optomistic and pleasant. Taking oxycodone regularly for pain relief. Oxygen needs supplemented with 2 l/min O2. Encouraged pt to increase his activity tomorrow now that his breathing is less labored. suggested sitting on side of bed, perhaps in chair for meals.
--- NOTE | 2023-02-19 04:59 | NUR ---
SHIFT SUMMARY A/Ox4 AND COOPERATIVE WITH CARE PROVIDED BY STAFF. ANSWERS QUESTIONS APPROPRIATELY AND ABLE TO MAKE NEEDS KNOWN. NO ACUTE EVENTS OVER NIGHT FOR PT SLEPT T/O THE NIGHT. CONTINUES TO MAINTAIN SPO2 >90% ON 2L VIA NC WITH NO SOB REPORTED WHEN AT REST. PT DID NOT REQUIRE BiPAP T/O THE NIGHT. DOES DESAT/BECOME SOB WITH EXERTION HOWVER, LS CONTINUE TO BE WHEEZY T/O. CARDIAC RICE, SR 70-90'S WITH NO REPORTS OF CP OR PRESSURE. BP STABLE. PT IS CONTINENT AND ABLE TO IND. VOID IN URINAL. CHRONIC BACK PAIN AND HEADACHES MANAGED ORDERED PER EMAR. PT IS EAGER TO UPGRADE HIS ACTIVITY STATUS AND RECEIVED VISIT FROM DENTAL HYGENIST ON 02/18/23 PER DAY SHIFT REPORT. NO NEW ORDERS AT THIS TIME, WILL REPORT TO ASSUMPTION OF CARE RN
--- NOTE | 2023-02-19 11:03 | NUR ---
Pt was awakened earlier this morning for the vasotec, once it had been sent from the pharmacy. After taking this, he said that he was going to go back to sleep.
--- NOTE | 2023-02-19 15:17 | NUR ---
Patient is sitting on a chair and eating lunch. He talks at length about his many medical events and about how frustating they are. He mentions that he has guilt because he has done this to himself with his 43 yrs of smoking. He states that he has not a cigarette since 2006 though. He then proudly speaks of his 3 sons accomplishments and talents, his love of his and his career in the electrical business. He says that being near his family is the most improtant thing to him right now and is looking forward to going home soon. I listen empathically, normalize his experienace and provide prayer. Patient voices his appreciation for the prayer and time in conversation. He appears more restful and shows signs of catharsis. I will continue to remain available to patient and family.
--- NOTE | 2023-02-19 16:40 | NUR ---
Telephone report given to TOBY Moise. Pt to be transferred to medical [facility]appell, room 363 after the room has been cleaned.
--- NOTE | 2023-02-19 17:24 | NUR ---
spo2 96% on 1 l/min O2 delivery. PT transferred independently to the wheelchair, and was taken up to medical floor at this time by the PCT.
--- NOTE | 2023-02-19 18:40 | NUR ---
PT TRANSFERRED FROM [facility] IN STABLE CONDITION ON RA. 95-97% O2 SAT ON RA. RN RECEIVED REPORT FROM ROBOTICS SOFTWARE ENGINEER BEFORE TRANSFER.
--- NOTE | 2023-02-20 05:54 | NUR ---
PATIENT IS A&OX4, PLEASANT AND COOPERATIVE WITH CARE. STRONG HACKING NONPRODUCTIVE COUGH DOES CLEAR UPPER AIRWAYS, HOWEVER, ALL MESA ARE COARSE AND DIM IN THE BASES. PATIENT IS ASKING ABOUT BEING TRIALED AMBULATING ON ROOM AIR HE FEELS HE FREQUENTLY DE SATS UPON AMBULATION AT HOME. RECEIVED ORDER FOR GUAIFENISEN WHICH PATIENT TAKES AT HOME TO HELP HIM EXPEL HIS SPUTUM. WILL CONTINUE CLOSE MONITORING
--- NOTE | 2023-02-20 13:30 | NUR ---
Patient is sitting on a chair and alert. Patient tells me about the poor health of his spouse and the concerns about going home if she is sick. He also talks about his discouragement with his slow progress toward health as the Pneumonia continues to hang on. He tells stories of his favorite memories with his family and his goals for the future. Patient responded well to story telling and uplifting conversation and showed signs of an elevated mood. I will continue to remain available to patient and family.
--- NOTE | 2023-02-20 18:43 | NUR ---
SHIFT SUMMARY- PT ALERT AND ORIENTED 1P SBA TO THE BATHROOM. PT HAS HAD NO ACUTE CHANGE T/O THE SHIFT. PT IS CURRRENTLY BACK IN BED, CALL LIGHT IN REACH, NO S&S OF DISTRESS NOTED. WILL CTM AND PASS ON TO NIGHT RN IN BEDSIDE REPORT.
--- NOTE | 2023-02-20 19:12 | NUR ---
CALLED DR NETTLES- PT TAKES HIS TIZANIDINE AT NIGHT TO HELP WITH SLEEP AND LEG PAIN AT NIGHT. HERE IT IS ORDERED IN THE MORNING. RECIEVED AN ORDER TO CHANGE TO HS DOSING.
[2023-02-21 05:14] LABS: Bun/Creatinine Ratio 33.4 (12.0-20.0); Calcium, Blood 8.6 mg/dL (8.5-10.1); Creatinine, Blood 0.6 mg/dL (0.60-1.20); Potassium, Blood 3.9 mmol/L (3.5-5.5)
--- NOTE | 2023-02-21 06:23 | NUR ---
NO CHANGES NOTED WITH DIAMANTE EXCEPT HE WAS BECOMING EXTREMELY CONGESTED IN HIS NOSE, AND HIS COUGH WAS BECOMING CONSTANT AT THE BEGINNING OF THE SHIFT. ORDER FOR SALINE NASAL SPRAY RECEIVED AND PO GUAIFENESIN GIVEN AND PATIENT WAS ABLE TO EXPELL A LOT OF CLEAR SPUTUM AND CLEAR HIS COUGH SIGNIFICANTLY. ONGOING BACK PAIN WELL INTERMITTANT PLEURITIC PAIN WITH COUGH WAS MANAGED TO A TOLERABLE LEVEL WITH CURRENT HOME PAIN REGIMEN. RT SPOKE WITH PATIENT ABOUT THE POSSIBILITY OF HOME O2
--- NOTE | 2023-02-21 18:28 | NUR ---
SHIFT SUMMARY A&O X 4. VSS. IS PLEASANT & COOPERATIVE WITH ALL CARE. IS INDEPENDENT IN THE ROOM FOR RESTROOM USE. MEDICATED PER EMAR FOR PAIN. PT C/O COMPLETE STUFFY NOSE & INABILITY TO BREATH THRU HIS NOSE. PT REQUESTED AFRIN NASAL SPRAY, PLACED CALL TO MD, ORDERS RECEIVED. PT STATES IT HAS HELPED. PT SAT UP IN CHAIR FOR MOST OF THE AFTERNOON. IS ON 2 L'S O2 WITH SATS >95%.
--- NOTE | 2023-02-22 05:14 | NUR ---
SHIFT SUMMARY PT IS A&O4, INDEPENDENT IN THE ROOM, 2L NC, VSS, PRN PAIN MEDICATION GIVEN PER JAN OVERNIGHT, NO ACUTE OVERNIGHT EVENTS CONTINUE POC
--- NOTE | 2023-02-22 19:22 | NUR ---
SHIFT SUMMARY NO ACUTE CHANGES THIS SHIFT. VSS. A&O X 4. APPETITE IS GOOD. RT DID HOME O2 EVAL AND PT DOES REQUIRE O2 FOR EXERTIONAL ACTIVITIES AT HOME. PT CHOSE [facility] FOR HOME O2 SUPPLY UPON DC. PT IS INDEPENDENT W/FWW IN THE ROOM FOR RESTROOM USE. MEDICATED Q4 HRS FOR C/O OF CHRONIC PAIN PER EMAR WITH GOOD RELIEF STATED BY PT. PT DOES BECOME SOB WITH EXERTION. IS PLEASANT & COOPERATIVE WITH ALL CARE. CALL LIGHT WITHIN REACH & PT USES APPROPRIATELY.
[2023-02-23] MEDS ORDERED: ELIQUIS5 M2 PO (12:11)
[2023-02-23] MEDS ORDERED: GUAI600T33 PO (12:11)
[2023-02-23] MEDS ORDERED: NYSTATIN100000 U13 PO (12:13)
[2023-02-23] MEDS ORDERED: OXYM.05NI (12:14)
[2023-02-23] MEDS ORDERED: Prednisone10 MG PO (12:16)
--- NOTE | 2023-02-23 12:58 | NUR ---
LATE ENTRY/DC HOME 1230: WRITTEN & VERBAL DC INSTRUCTIONS GIVEN TO PT WITH PRESENT, GOOD UNDERSTANDING VERBALIZED BY BOTH. ALL CONCERNS & QUESTIONS ANSWERED. PIV DC'D WITH CATH TIP INTACT, NO REDNESS OR SWELLING NOTED. NEW SCRIPTS FAXED TO [employer] [facility] PER PT REQUEST. PT TO PV VIA W/C WITH ALL PERSONAL BELONGINGS, TO DRIVE PT HOME.
== END 2023-02-23 12:40 | disposition home or self-care (01) | DRG 189 ==
LOC: ER 04:21 → PCU 05:55 → MEDS 02-19 17:23
PROVIDERS: Emergency Medicine; Internal Medicine; ADMIT Student in an Organized Health Care Education/Training Program
PROC: 5A09457 Assistance with Respiratory Ventilation, 24-96 Consecutive Hours, Continuous Positive Airway Pressure (ICD-10-PCS; principal; 2023-02-17)
DX: J96.01 Acute respiratory failure with hypoxia (principal); J44.1 Chronic obstructive pulmonary disease with (acute) exacerbation; E87.20 Acidosis, unspecified; R65.10 Systemic inflammatory response syndrome (SIRS) of non-infectious origin without acute organ dysfunction; I48.91 Unspecified atrial fibrillation; Z20.822 Contact with and (suspected) exposure to COVID-19; I10 Essential (primary) hypertension; E78.5 Hyperlipidemia, unspecified; E11.9 Type 2 diabetes mellitus without complications; F32.A Depression, unspecified; Z96.651 Presence of right artificial knee joint; Z96.612 Presence of left artificial shoulder joint; Z96.611 Presence of right artificial shoulder joint; Z98.890 Other specified postprocedural states; Z79.899 Other long term (current) drug therapy; Z79.52 Long term (current) use of systemic steroids; Z90.49 Acquired absence of other specified parts of digestive tract; Z79.51 Long term (current) use of inhaled steroids; Z79.891 Long term (current) use of opiate analgesic; Z79.84 Long term (current) use of oral hypoglycemic drugs; Z79.2 Long term (current) use of antibiotics; Z87.891 Personal history of nicotine dependence
CPT/HCPCS: 0241U; 36415; 71045; 80048; 80053; 82803; 83605; 83880; 85025; 87040; 93005; 93010; 94640; 94644; 94660; 94664; 94760; 94761; 94762; 96374; 96375; 99285-25; A9270; J0456; J0696; J1644; J2930; J7050; J7512

== ENCOUNTER 2023-06-09 08:43 | Day surgery (SDC) | payer MEDICARE ==
[2023-06-09] VITALS (26 sets, daily range): BP systolic 115–161; BP diastolic 78–118
[~2023-06-09] VITALS: Ht 175.3 cm; Wt 76.9 kg
[~2023-06-09 08:43] MED LIST changes: +ELIQUIS5 M2 PO; +Enalapril Malea20 MG PO; +GABA300 PO; +GUAI600T33 PO; +METF500C PO; +NYSTATIN100000 U13 PO; +OXYM.05NI; +Prednisone10 MG PO; +SOLI5 PO; +TAMS.4ER PO; +TIZA4 PO; +VENL150ER PO
--- NOTE | 2023-06-09 09:39 | NUR ---
History, Chart, Medications and Allergies reviewed before start of procedure. Lungs clear T/O to Auscultation. Patient confirms NPO status and agrees with scheduled surgery. Pre-Op teaching done. Pt verbalizes understanding. Patient states colon prep results clear. Patient States Post-Procedure ride home has been arranged.
--- NOTE | 2023-06-09 10:48 | NUR ---
06/09/23 1048 Humza Amaro HISTORY, CHART, MEDICATIONS AND ALLERGIES REVIEWED BEFORE START OF PROCEDURE. PATIENT CONFIRMS NPO STATUS AND AGREES WITH SCHEDULED PROCEDURE. 3-LEAD EKG REVIEWED WITH PHYSICIAN PRIOR TO START OF PROCEDURE. MONITOR INTACT WITH CONTINUOUS PULSE OXIMETRY,CAPNOGRAPHY, 3-LEAD EKG, INTERMITTENT BP. SUPPLEMENTAL O2 TO BE TITRATED THROUGHOUT PROCEDURE TO MAINTAIN O2 SATURATION ABOVE 90%. PATIENT DETERMINED TO BE ASA APPROPRIATE FOR PROPOFOL SEDATION PRIOR TO START OF PROCEDURE BY
--- NOTE | 2023-06-09 11:23 | NUR ---
INTO STEP. PT AWAKE, ALERT, AND APPEARS ANXIOUS. PT MOANING. PT REPORTS 9/10 RIGHT HIP PAIN.PT REQUESTS "OXYCODONE." PT TAKES OXYCODONE AT HOME. DR. BAXTER AWARE OF PT HIP PAIN. PT TO TAKE PAIN MEDS WHEN HE GETS HOME.
--- NOTE | 2023-06-09 11:50 | NUR ---
REVIEWED DISCHARGE INSTRUCTIONS WITH PT SPOUSE NICHOL. NICHOL VERBALIZES UNDERSTANDING. PT DISCHARGE TO HOME-OUT VIA WHEELCHAIR WITH DISCHARGE INSTRUCTIONS AND BELONGINGS ON HAND.
== END 2023-06-09 11:50 | disposition home or self-care (01) ==
LOC: ORSCMMR 08:43 → ORD 09:30 → ORSCMMR 11:50
PROVIDERS: Internal Medicine Gastroenterology
PROC: 0DBK8ZX Excision of Ascending Colon, Via Natural or Artificial Opening Endoscopic, Diagnostic (ICD-10-PCS; principal; 2023-06-09 09:30)
PROC: 0DBN8ZX Excision of Sigmoid Colon, Via Natural or Artificial Opening Endoscopic, Diagnostic (ICD-10-PCS; principal; 2023-06-09 09:30)
PROC: 0DB58ZX Excision of Esophagus, Via Natural or Artificial Opening Endoscopic, Diagnostic (ICD-10-PCS; principal; 2023-06-09 09:30)
DX: R13.14 Dysphagia, pharyngoesophageal phase (principal); Z12.11 Encounter for screening for malignant neoplasm of colon; Z86.010 Personal history of colon polyps; B37.81 Candidal esophagitis; D12.5 Benign neoplasm of sigmoid colon; K63.5 Polyp of colon; J44.9 Chronic obstructive pulmonary disease, unspecified; I10 Essential (primary) hypertension; E11.9 Type 2 diabetes mellitus without complications; E78.00 Pure hypercholesterolemia, unspecified; I48.0 Paroxysmal atrial fibrillation; Z79.899 Other long term (current) drug therapy; Z87.891 Personal history of nicotine dependence; Z79.84 Long term (current) use of oral hypoglycemic drugs
CPT/HCPCS: 82947; 88305; 88312; A9270; J2704; J7120

== ENCOUNTER 2025-05-15 07:34 | Inpatient (IN) | payer MEDICARE ==
[~2025-05-15] VITALS: Ht 175.3 cm; Wt 81.5 kg
[~2025-05-15 07:34] MED LIST changes: +CBD; +Kristalose20 GM PO; +STOOL SOFTENER
[2025-05-15 07:52] LABS: BASOPHILS ABSOLUTE AUTO 0.05 K/mm3 (0.00-0.23); BASOPHILS PERCENT AUTO 0 % (0-2); EOSINOPHILS ABSOLUTE AUTO 0.15 K/mm3 (0.00-0.68); EOSINOPHILS PERCENT AUTO 1 % (0-6); Hematocrit 43.1 % (37.0-53.0); Hemoglobin 14.7 g/dL (13.5-17.5); IMMATURE GRAN ABSOLUTE AUTO 0.04 K/mm3 (0.00-0.10); IMMATURE GRAN PERCENT AUTO 0 % (0-1); LYMPHOCYTES ABSOLUTE AUTO 0.79 K/mm3 (0.84-5.20); LYMPHOCYTES PERCENT AUTO 7 % (21-46); MONOCYTES ABSOLUTE AUTO 2.00 K/mm3 (0.16-1.47); MONOCYTES PERCENT AUTO 17 % (4-13); Mean Corpuscular HGB Conc 34.1 g/dL (31.5-36.5); Mean Corpuscular Volume 91 fL (80-100); NEUTROPHILS ABSOLUTE AUTO 8.69 K/mm3 (1.96-9.15); NEUTROPHILS PERCENT AUTO 74 % (41-73); NRBC ABSOLUTE 0.00 K/mm3 (0.00-0.02); NRBC Auto 0.0 /100 WBC (0.0-0.2); Platelet Count 237 K/mm3 (150-400); RDW Coefficient Variation 13.7 % (11.7-14.2); RDW Standard Deviation 46.4 fL (35.1-46.3)
[2025-05-15] MEDS ORDERED: Albuterol 2.5 MG/3 ML VIAL INH SCH (08:05)
[2025-05-15] MEDS ORDERED: Ipratropium/Albuterol SulF 2.5-0.5MG/3 ML Amp INH ONE (08:05)
[2025-05-15 08:14] LABS: Alanine Aminotransfer (ALT/SGP 69.0 U/L (12-78); Albumin, Blood 3.0 g/dL (3.4-5.0); Albumin/Globulin Ratio 0.7 (0.8-1.8); Anion Gap 10.0 mmol/L (3-11); Aspartate Aminotrans (AST/SGOT 41.0 U/L (12-37); Bilirubin, Total 0.9 mg/dL (0.1-1.0); Blood Urea Nitrogen 16.0 mg/dL (8-24); CO2, Blood 28.0 mmol/L (21-32); Calcium, Blood 9.5 mg/dL (8.5-10.1); Chloride, Blood 102.0 mmol/L (98-108); Creatinine, Blood 0.71 mg/dL (0.60-1.20); Globulin, Blood 4.4 g/dL (2.2-4.0); Glucose, Blood 188.0 mg/dL (70-99); Potassium, Blood 3.7 mmol/L (3.5-5.5); Sodium, Blood 136.0 mmol/L (136-145); Total Protein, Blood 7.4 g/dL (6.4-8.2)
[2025-05-15] MEDS ORDERED: CefTRIAXone Sodium 1,000 MG in NS 50 ML IV ONE (08:25)
[2025-05-15] MEDS ORDERED: NS 1,000 ML IV SCH (09:55)
[2025-05-15 10:11] LABS: pH Blood Venous 7.42 (7.34-7.37)
[2025-05-15 11:16] VITALS: BP 123/86
[2025-05-15] MEDS ORDERED: Albuterol 2.5 MG/3 ML VIAL INH PRN (13:55)
[2025-05-15] MEDS ORDERED: Ipratropium/Albuterol SulF 2.5-0.5MG/3 ML Amp INH SCH (13:55)
[2025-05-15] MEDS ORDERED: Budesonide 0.5 MG/2 ML RESP INH SCH (14:00)
[2025-05-15 15:30] VITALS: BP 128/87
[2025-05-15] MEDS ORDERED: Insulin Human Lispro 100 Units/ML 3ML Syringe SC SCH (16:30)
[2025-05-15] MEDS ORDERED: OxyCODONE 10/Acetamin 325 TABLET PO PRN (17:35)
--- NOTE | 2025-05-15 18:45 | NUR ---
SHIFT SUMMARY PT A&OX4. PT ADMITTED TO FLOOR AT 1110. PT TRANSFERED SELF FROM WHEELCHAIR TO BED. PT ORIENTED TO UNIT/FALL PRECAUTIONS/CALL LIGHT. ADMISSION COMPLETED. MEDS NOT RECONSILED. KNOWS TO BRING LIST TOMORROW. LET NIGHT RN KNOW. NS RUNNING AT 100ML/HR. PT EATS ADEQUATE. PT REPORTS SOB WITH AMBULATION. PT HAS OCCASSIONAL COUGH. PT WEARS 2L OF O2 PRN AT HOME. PT ON 3L OF O2 VIA N/C. RESPIRATORY CAME BY FOR TREATMENTS. PT SPO2 IS 93%. PT IS SBA TO PT REPORTED HAVING OXYCODONE AND TYLENOL IN PILL CONTAINER IN BAG. REPORTED TO DIESEL POWERPLANT MECHANIC HELPER. THIS RN GAVE PILL CONTAINER TO PHARMACY AND RETRIEVED RECEIPT. PT KNOWS TO OBTAIN RECEIPT FROM LOCKED DRAWER AND HAVE MEAT PASSER PILL CONTAINER TOMORROW PT SITTING ON SIDE OF BED WITH FEET FLAT ON GROUND. CALL LIGHT IN REACH. BED IN LOWEST POSITION.
[2025-05-15 19:22] VITALS: BP 134/84
[2025-05-16 04:23] VITALS: BP 129/74
--- NOTE | 2025-05-16 04:56 | NUR ---
Shift Summary AOx4. Pleasant/cooperative. Calling appropriately. Aware of limitations. Sits at the EOB to urinate. 1P SBA w/ ambulation, short walks only d/t shortness of breath. Slightly [place]. 3L O2 via NC is worn, baseline is 2L O2 PRN. 18g LAC w/ NS @ 100 continuously. Chronic back pain. SOB improving. to bring in home med list for reconcilation.
[2025-05-16 06:19] LABS: Hematocrit 37.9 % (37.0-53.0); Hemoglobin 12.8 g/dL (13.5-17.5); Mean Corpuscular HGB Conc 33.8 g/dL (31.5-36.5); Mean Corpuscular Volume 91 fL (80-100); NRBC ABSOLUTE 0.00 K/mm3 (0.00-0.02); NRBC Auto 0.0 /100 WBC (0.0-0.2); Platelet Count 256 K/mm3 (150-400); RDW Coefficient Variation 13.8 % (11.7-14.2); RDW Standard Deviation 46.2 fL (35.1-46.3)
[2025-05-16 06:46] LABS: Anion Gap 8.0 mmol/L (3-11); Blood Urea Nitrogen 19.0 mg/dL (8-24); CO2, Blood 25.0 mmol/L (21-32); Calcium, Blood 8.9 mg/dL (8.5-10.1); Chloride, Blood 105.0 mmol/L (98-108); Creatinine, Blood 0.64 mg/dL (0.60-1.20); Glucose, Blood 209.0 mg/dL (70-99); Potassium, Blood 3.4 mmol/L (3.5-5.5); Sodium, Blood 135.0 mmol/L (136-145)
[2025-05-16 07:42] VITALS: BP 127/80
[2025-05-16] MEDS ORDERED: Enoxaparin 40 MG/0.4 ML SYR SC SCH (09:00)
[2025-05-16] MEDS ORDERED: CefTRIAXone Sodium 1,000 MG in NS 100 ML IV SCH (09:00)
[2025-05-16] MEDS ORDERED: Potassium Chloride 10 Meq Tablet SA PO ONE (09:05)
[2025-05-16] MEDS ORDERED: ACET325 PO (11:03)
[2025-05-16] MEDS ORDERED: Enalapril Malea20 MG PO (11:06)
[2025-05-16] MEDS ORDERED: TURMERIC500 M2 PO (11:08)
[2025-05-16] MEDS ORDERED: ABILIFY MYCITE2 M2 PO (11:09)
[2025-05-16] MEDS ORDERED: ALPHA LIPOIC A600 MG PO (11:10)
[2025-05-16] MEDS ORDERED: MOVANTIK25 M1 PO (11:11)
[2025-05-16] MEDS ORDERED: DOCU100 PO (11:12)
[2025-05-16] MEDS ORDERED: MEGA 3-6-9 SO1233 MG PO (11:16)
[2025-05-16] MEDS ORDERED: FERSU300 PO (11:17)
[2025-05-16] MEDS ORDERED: PRED5 PO (11:18)
[2025-05-16] MEDS ORDERED: LACT10SY PO (11:18)
[2025-05-16] MEDS ORDERED: TRELEGY ELLIPT1 EACH INH (11:20)
[2025-05-16] MEDS ORDERED: MULVITA PO (11:23)
[2025-05-16] MEDS ORDERED: VITAMIN B122500 MC1 PO (11:24)
[2025-05-16] MEDS ORDERED: VITAMIN B121000 MCG PO (11:25)
[2025-05-16] MEDS ORDERED: Milk Thistle175 M1 PO (11:25)
[2025-05-16] MEDS ORDERED: C COMPLEX1000 M1 PO (11:26)
[2025-05-16] MEDS ORDERED: MAGNESIUM OXID500 MG PO (11:27)
[2025-05-16] MEDS ORDERED: VITAMIN D5000 UNIT PO (11:28)
[2025-05-16] MEDS ORDERED: POTASSIUM99 M3 PO (11:28)
[2025-05-16] MEDS ORDERED: TAMS.4ER PO (11:31)
[2025-05-16] MEDS ORDERED: SOLI5 PO (11:32)
[2025-05-16] MEDS ORDERED: NYSTATIN100000 U10 SS (11:35)
[2025-05-16] MEDS ORDERED: Valerian Root500 MG PO (11:36)
[2025-05-16] MEDS ORDERED: TIZA4 PO (11:37)
[2025-05-16] MEDS ORDERED: BANOPHEN50 MG PO (11:38)
[2025-05-16 15:48] VITALS: BP 126/87
--- NOTE | 2025-05-16 16:48 | NUR ---
PT IS AOX4 AND COOPERATIVE OF CARE. PT HAS CONTINUED TO HAVE SOB AND IS BEING TREATED BY RT. PT HAS BEEN RESTING IN BED MOST OF THE DAY. PT DID SIT UP FOR LUNCH IN HIS CHAIR. PT USING URINAL NEEDED. CALL LIGHT WITHIN REACH WILL CONTINUE TO MONITOR.
[2025-05-16 17:05] VITALS: BP 132/83
[2025-05-16 19:16] VITALS: BP 134/82
[2025-05-17 02:32] VITALS: BP 130/90
--- NOTE | 2025-05-17 04:33 | NUR ---
SHIFT SUMMARY: Pt is admitted for sepsis and is a full code. Is alert and able to make needs known. ADLs have been SBA as he has been using the urinal. Pain has been managed with PRN medications. Iv to LFA is patent with ns running at 100ml/h. On 3lpm via NC to maintain SPO2 greater than 90%.
[2025-05-17 07:36] VITALS: BP 145/87
[2025-05-17 09:48] LABS: Albumin, Blood 2.6 g/dL (3.4-5.0); Anion Gap 8 mmol/L (3-11); Blood Urea Nitrogen 21 mg/dL (8-24); CO2, Blood 27 mmol/L (21-32); Calcium, Blood 8.6 mg/dL (8.5-10.1); Chloride, Blood 103 mmol/L (98-108); Creatinine, Blood 0.62 mg/dL (0.60-1.20); Glucose, Blood 331 mg/dL (70-99); Phosphorus, Blood 2.6 mg/dL (2.5-4.9); Potassium, Blood 3.6 mmol/L (3.5-5.5); Sodium, Blood 134 mmol/L (136-145)
--- NOTE | 2025-05-17 11:56 | NUR ---
PT'S 1130 CBG WAS 416 PT WAS GIVEN 5 UNITS PER EMAR LOW SLIDING SCALE. NOTIFIED DR WATSON IMMEDIATELY AND SHE ORDERED MED SLIDING SCALE AND TO GIVE 5 UNITS ADDITIONALLY TO MATCH THE INCREASED SLIDING SCALE.
[2025-05-17] MEDS ORDERED: Insulin Human Lispro 100 Units/ML 3ML Syringe SC SCH ×2 (16:30)
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
[2025-05-17 20:06] VITALS: BP 145/84
[2025-05-18 04:26] VITALS: BP 142/94
--- NOTE | 2025-05-18 06:39 | NUR ---
SHIFT SUMMARY PT LYING IN BED AT START OF SHIFT. HE IS ABLE TO AMBULATE INDEPENDENTLY TO BATHROOM. PT SLEPT PEACEFULLY THROUGH NIGHT, WAKING FOR MEDICATIONS, THEN GOING BACK TO SLEEP.
[2025-05-18 07:45] VITALS: BP 135/100
[2025-05-18 08:08] LABS: Anion Gap 8.0 mmol/L (3-11); Blood Urea Nitrogen 22.0 mg/dL (8-24); CO2, Blood 29.0 mmol/L (21-32); Calcium, Blood 9.0 mg/dL (8.5-10.1); Chloride, Blood 101.0 mmol/L (98-108); Creatinine, Blood 0.64 mg/dL (0.60-1.20); Glucose, Blood 217.0 mg/dL (70-99); Potassium, Blood 3.8 mmol/L (3.5-5.5); Sodium, Blood 134.0 mmol/L (136-145)
[2025-05-18 15:28] VITALS: BP 162/99
--- NOTE | 2025-05-18 17:51 | NUR ---
SHIFT SUMMARY PT CONT LEVEL OF CARE WITH NO ACUTE CHANGES NOTED. PT NOTED TO BE A&OX4 AND IND IN ROOM. PT CONT TO UTILIZE PRN OXYGEN. PLAN IS TO CONT WITH IV ABT, IV STEROIDS AND POSSIBLE DC TOMORROW.
[2025-05-18 19:51] VITALS: BP 153/102
[2025-05-18 19:55] VITALS: BP 150/98
[2025-05-19 04:30] VITALS: BP 153/97
[2025-05-19 07:33] VITALS: BP 152/100
[2025-05-19] MEDS ORDERED: Polyethylene Glycol 3350 17 gm PO ONE (11:05)
[2025-05-19] MEDS ORDERED: Prednisone10 MG PO (12:17)
[2025-05-19] MEDS ORDERED: Tessalon200 MG PO (12:18)
[2025-05-19] MEDS ORDERED: DOXY100 PO (12:18)
[2025-05-19] MEDS ORDERED: IPRAT-ALBUT 0.5-3 ML INH (12:21)
[2025-05-19] MEDS ORDERED: PROBIOTIC1 EA13 PO (12:22)
[2025-05-19] MEDS ORDERED: LEVOFLOXACIN750 MG PO (12:26)
[2025-05-19] MEDS ORDERED: ALBU90OI INH (12:26)
[2025-05-19] MEDS ORDERED: HUMALOG KW100 UNIT/1 SC (12:29)
--- NOTE | 2025-05-19 13:15 | NUR ---
PT DISCHARGED WITH HOME HEALTH. SPOUSE AT BEDSIDE. DISCUSSED NEW MEDICATIONS AND DISCHARGE INSTRUCTIONS WITH PT AND SPOUSE. SPOUSE EXPRESSED ANXIETY DUE TO DRIVING HOME AND THEN TO [facility] FOR HER APPOINTMENT. ATTEMPTED TO CALL [employer] [facility] TO ENSURE FAX WAS RECIEVED. PHARMACY CLOSED FOR LUNCH WILL ATTEMPT TO CALL AGAIN AT 1345/ PT AND SPOUSE VERBALIZED UNDERSTANDING OF DISCHARGE INSTRUCTIONS.
--- NOTE | 2025-05-19 13:47 | NUR ---
[email or web address] ARE FILLING MEDICAITONS NOW, AND WILL HAVE READY FOR PT TODAY
== END 2025-05-19 13:17 | disposition home health service (06) | DRG 871 ==
LOC: ER 07:34 → MEDS 09:52
PROVIDERS: Student in an Organized Health Care Education/Training Program; ADMIT Internal Medicine
DX: A41.9 Sepsis, unspecified organism (principal); J18.9 Pneumonia, unspecified organism; J96.21 Acute and chronic respiratory failure with hypoxia; J44.1 Chronic obstructive pulmonary disease with (acute) exacerbation; J44.0 Chronic obstructive pulmonary disease with (acute) lower respiratory infection; E87.6 Hypokalemia; I44.0 Atrioventricular block, first degree; N40.0 Benign prostatic hyperplasia without lower urinary tract symptoms; R65.20 Severe sepsis without septic shock; G47.00 Insomnia, unspecified; K21.9 Gastro-esophageal reflux disease without esophagitis; M54.50 Low back pain, unspecified; G89.29 Other chronic pain; I10 Essential (primary) hypertension; E78.5 Hyperlipidemia, unspecified; E11.9 Type 2 diabetes mellitus without complications; I48.0 Paroxysmal atrial fibrillation; F32.A Depression, unspecified; Z90.49 Acquired absence of other specified parts of digestive tract; Z79.51 Long term (current) use of inhaled steroids; Z79.890 Hormone replacement therapy; Z79.899 Other long term (current) drug therapy; Z79.84 Long term (current) use of oral hypoglycemic drugs; Z99.81 Dependence on supplemental oxygen; Z96.651 Presence of right artificial knee joint; Z98.890 Other specified postprocedural states; Z87.891 Personal history of nicotine dependence; Z96.611 Presence of right artificial shoulder joint; Z96.612 Presence of left artificial shoulder joint; Z82.49 Family history of ischemic heart disease and other diseases of the circulatory system
CPT/HCPCS: 36415; 71046; 80048; 80053; 80069; 82803; 82947; 83605; 83735; 84484; 85025; 85027; 87040; 87070; 87205; 93005; 93010; 94640; 94664; 94760; 94761; 94762; 96365; 96368; 97110; 97110-CQ; 97116; 97116-CQ; 97162; 97165; 97530; 97535; 99285-25; A9270; J0456; J0696; J1650; J2919; J7030; J7050; J7512